=== PATIENT | female | born 1995 | race Two or more races ===

== ENCOUNTER 2017-11-23 07:39 | Emergency (ER) | payer SELFPAY ==
[~2017-11-23] VITALS: Ht 165.1 cm; Wt 81.6 kg
--- NOTE | 2017-11-23 07:42 | NUR ---
PATIENT TO ED DT EPIGASTRIC PAIN, 9/10, NON RADIATING SINCE THIS MORNING. PATIENT IS AWAKE AND ALERT. NOT IN DISTRESS. SKIN IS WARM TO TOUCH AND NON DIAPHORETIC. PATIENT IS AFEBRILE. VSS
[2017-11-23] MEDS ORDERED: MAG HYDROX/AL HYDROX/SIMETH 30 ML UDC ONE (08:09)
[2017-11-23] MEDS ORDERED: MAG HYDROX/AL HYDROX/SIMETH 30 ML UDC PO ONE (08:30)
[2017-11-23 09:01] VITALS: BP 124/80
--- NOTE | 2017-11-23 09:02 | NUR ---
Patient discharged to home in stable condition. Written and verbal after care instructions given. Patient verbalizes understanding of instruction.
== END 2017-11-23 09:02 | disposition home or self-care (01) ==
LOC: ER 07:42
DX: R07.89 Other chest pain (principal)
CPT/HCPCS: 71045; 93005; 99284; A4606; Z7610